=== PATIENT | female | born 1985 | race Caucasian/White ===

== ENCOUNTER 2018-07-17 15:40 | Emergency (ER) | payer MEDICAID ==
[~2018-07-17] VITALS: Ht 165.1 cm; Wt 90.3 kg
[~2018-07-17 15:40] MED LIST: FLO0.4C PO; ONDA4TAB6 PO; ONDA8TAB6 PO; RIFA600V4 PO
[2018-07-17 15:52] VITALS: BP 155/80
[2018-07-17] MEDS ORDERED: ibuprofen tablet 400 MG TABLET PO ONE (16:05)
== END 2018-07-17 17:31 | disposition home or self-care (01) ==
LOC: EEVIPCON 15:40 → ER 15:40
DX: S50.02XA Contusion of left elbow, initial encounter (principal); M19.90 Unspecified osteoarthritis, unspecified site; Z98.890 Other specified postprocedural states; Z90.89 Acquired absence of other organs; Z88.1 Allergy status to other antibiotic agents; Z88.2 Allergy status to sulfonamides; Z79.899 Other long term (current) drug therapy; Y08.89XA Assault by other specified means, initial encounter; Y93.89 Activity, other specified; Y92.89 Other specified places as the place of occurrence of the external cause; Y99.9 Unspecified external cause status
CPT/HCPCS: 73080; 99284; A4565